=== PATIENT | female | born 1995 | race American Indian/Alaskan Native ===

== ENCOUNTER 2017-09-25 08:29 | Emergency (ER) | payer OTHER ==
[2017-09-25 10:02] LABS: Basophils # (Auto) 0.1 K/mm3 (0.0-0.1); Basophils % (Auto) 0.7 % (0.0-1.8); Eosinophils # (Auto) 0.1 K/mm3 (0.0-0.4); Eosinophils % (Auto) 1.2 % (0.0-4.3); Hematocrit 37.1 % (30.3-42.9); Lymphocytes # (Auto) 1.8 K/mm3 (1.2-5.4); Lymphocytes % (Auto) 25.4 % (13.4-35.0); Mean Corpuscular HGB Conc 32 % (30-34); Mean Corpuscular Hemoglobin 27 pg (28-32); Mean Corpuscular Volume 83 fl (79-97); Monocytes # (Auto) 0.7 K/mm3 (0.0-0.8); Platelet Count 382 K/mm3 (140-440); Red Blood Count 4.45 M/mm3 (3.65-5.03); Red Cell Distribution Width 14.7 % (13.2-15.2)
[2017-09-25 11:24] LABS: Bacteria,Urine 1+ /HPF (Negative); Bilirubin,Urine NEG (Negative); Blood,Urine LG (Negative); Urobilinogen,Urine < 2.0 mg/dL (<2.0)
[2017-09-25 11:25] LABS: RBC,Urine > 182.0 /HPF (0.0-6.0)
[2017-09-25 11:26] LABS: Color,Urine Red (Yellow)
[2017-09-25 11:48] VITALS: BP 146/85
--- NOTE | 2017-09-25 11:58 | Ultrasound Report ---
ULTRASOUND OB LESS THAN 14 WEEKS FETUS ULTRASOUND OB TRANSVAGINAL HISTORY: Vaginal bleeding, positive test. COMPARISON: None. TECHNIQUE: Transabdominal and transvaginal ultrasound with color doppler interrogation. FINDINGS: Uterus: 8 x 4 x 6 cm. No uterine mass. Normal cervix. Endometrium: Homogeneous. 8.5 mm in thickness. No intrauterine is identified. Right ovary: 2.9 x 1.6 x 3.6 cm. No focal abnormality. Left ovary: 3.3 x 2.0 x 1.4 cm. No focal abnormality. No pelvic fluid or mass is identified. Normal color doppler interrogation. IMPRESSION: Unremarkable transabdominal and transvaginal pelvic ultrasounds. No intrauterine is visualized. The endometrial stripe is normal measuring 8.5 mm. This could represent a spontaneous . Please note that a very early or an ectopic are not entirely excluded at this point. Please correlate with the patient's clinical presentation and history.
--- NOTE | 2017-09-25 12:33 | Emergency Department Report ---
HPI - General Chief Complaint: Abdominal Pain Time Seen by Provider: 09/25/17 11:04 - HPI HPI: 21-year-old female presents to the emergency department with a complaint of some lower abdominal and/or pelvic cramping along with some vaginal bleeding that has been going on since last night. The patient believes she is about 5 weeks as her last menstrual cycle was August 20 and she had a positive home test recently. With this she is . She has started taking vitamins. Otherwise she did not take anything for her symptoms at presentation. She does not have a STOCKROOM CLERK at this time. ED Past Medical Hx - Past Medical History Previous Medical History?: No - Surgical History Past Surgical History?: No - Social History Smoking Status: Never Smoker - Medications Home Medications: Home Medications Medication Instructions Recorded Confirmed Last Taken Type Nitrofurantoin Monohyd/M-Cryst 100 mg PO BID #14 capsule 09/25/17 Unknown Rx [Macrobid 100 mg Capsule] ED Review of Systems ROS: Stated complaint: CRAMPS/VAG BLEED/5WKS PREG Other details as noted in HPI Comment: All other systems reviewed and negative Constitutional: denies: chills, fever Eyes: denies: eye pain, eye discharge, vision change ENT: denies: ear pain, throat pain Respiratory: denies: cough, shortness of breath, wheezing Cardiovascular: denies: chest pain, palpitations Gastrointestinal: abdominal pain (cramping). denies: nausea, vomiting Genitourinary: other (vaginal bleeding). denies: urgency, dysuria, discharge Musculoskeletal: denies: back pain, joint swelling, arthralgia Skin: denies: rash, lesions Neurological: denies: headache, weakness, paresthesias Physical Exam - Physical Exam Vital Signs: Vital Signs 09/25/17 09/25/17 09/25/17 09:19 11:47 11:48 Temperature 98.8 F 98.2 F Pulse Rate 76 88 Respiratory 16 100 H 18 Rate Blood Pressure 143/84 Blood Pressure 146/85 [Left] O2 Sat by Pulse 100 100 Oximetry Physical Exam: GENERAL: The patient is well-developed well-nourished. HENT: Normocephalic. Atraumatic. Patient has moist mucous membranes. EYES: Extraocular motions are intact. Pupils equal reactive to light bilaterally. NECK: Supple. Trachea is midline. CHEST/LUNGS: Clear to auscultation. There is no respiratory distress noted. HEART/CARDIOVASCULAR: Regular. There is no tachycardia. There is no murmur. ABDOMEN: Abdomen is soft, nontender. Patient has normal bowel sounds. There is no abdominal distention. SKIN: Skin is warm and dry. NEURO: The patient is awake, alert, and oriented. The patient is cooperative. The patient has no focal neurologic deficits. The patient has normal speech. MUSCULOSKELETAL: There is no tenderness or deformity. There is no limitation range of motion. There is no evidence of acute injury. ED Course Vital Signs 09/25/17 09/25/17 09/25/17 09:19 11:47 11:48 Temperature 98.8 F 98.2 F Pulse Rate 76 88 Respiratory 16 100 H 18 Rate Blood Pressure 143/84 Blood Pressure 146/85 [Left] O2 Sat by Pulse 100 100 Oximetry ED Medical Decision Making - Lab Data Result diagrams: 09/25/17 09:30 - Radiology Data Radiology results: report reviewed ULTRASOUND OB LESS THAN 14 WEEKS FETUS ULTRASOUND OB TRANSVAGINAL HISTORY: Vaginal bleeding, positive test. COMPARISON: None. TECHNIQUE: Transabdominal and transvaginal ultrasound with color doppler interrogation. FINDINGS: Uterus: 8 x 4 x 6 cm. No uterine mass. Normal cervix. Endometrium: Homogeneous. 8.5 mm in thickness. No intrauterine is identified. Right ovary: 2.9 x 1.6 x 3.6 cm. No focal abnormality. Left ovary: 3.3 x 2.0 x 1.4 cm. No focal abnormality. No pelvic fluid or mass is identified. Normal color doppler interrogation. IMPRESSION: Unremarkable transabdominal and transvaginal pelvic ultrasounds. No intrauterine is visualized. The endometrial stripe is normal measuring 8.5 mm. This could represent a spontaneous . Please note that a very early or an ectopic are not entirely excluded at this point. Please correlate with the patient's clinical presentation and history. Transcribed By: TTR Dictated By: LUIS DIAZ JR, MD Electronically Authenticated By: LUIS DIAZ JR, MD Signed Date/Time: 09/25/17 1150 - Medical Decision Making Patient presents with vaginal bleeding and pelvic cramping while thinking she is . Based on last menstrual cycle she should be about 4-5 weeks . Ultrasound showed some thickened endometrium but otherwise no gestational sac or signs of intrauterine at this time. I went back and checked a beta hCG came back at 31. Altogether this appears most consistent with a spontaneous miscarriage. They were given the instructions to follow-up with an STOCKROOM CLERK or return to the emergency department in 2-3 days for a repeat hormone level to show definitively that it is declining. Macrobid prescribed for a mild urinary tract infection. She will return to the ER with any worsening of her symptoms or any acute distress. - Differential Diagnosis , threatened miscarriage, spontaneous miscarriage, fibroids Critical Care Time: No Critical care attestation.: If time is entered above; I have spent that time in minutes in the direct care of this critically ill patient, excluding procedure time. ED Disposition Clinical Impression: Threatened UTI (urinary tract infection) Qualifiers: Urinary tract infection type: acute cystitis Hematuria presence: with hematuria Qualified Code(s): N30.01 - Acute cystitis with hematuria Disposition: TO HOME OR SELFCARE Is pt being admited?: No Condition: Stable Instructions: Threatened Miscarriage (ED) Additional Instructions: Please follow up with an STOCKROOM CLERK in next few days. If you're unable to get into an STOCKROOM CLERK, return to the emergency department in 2-3 days for a repeat beta hCG/ hormone level. Your hormone level today was 31. This is most likely consistent with a miscarriage. However if the hormone level is increasing the next time it is checked, and this still may be a very early . If the hormone level is decreasing the next time it is checked, then this was a spontaneous miscarriage. Return to the emergency department sooner with any increased vaginal bleeding, worsening of your symptoms, or with any acute distress. Prescriptions: Nitrofurantoin Monohyd/M-Cryst [Macrobid 100 mg Capsule] 100 mg PO BID #14 capsule Referrals: [facility] [Provider Group] - 3-5 Days [facility] [Provider Group] - 3-5 Days [facility] [Provider Group] - 3-5 Days Time of Disposition: 12:32
== END 2017-09-25 12:49 | disposition home or self-care (01) ==
LOC: ED 08:29
DX: O20.0 Threatened abortion (principal); O23.11 Infections of bladder in pregnancy, first trimester; Z3A.01 Less than 8 weeks gestation of pregnancy
CPT/HCPCS: 36415; 76801; 76817; 81001; 84702; 84703; 85025; 86850; 86900; 86901; 99284

== ENCOUNTER 2018-07-23 17:05 | Emergency (ER) | payer OTHER ==
[2018-07-23 18:28] LABS: Hematocrit 35.3 % (30.3-42.9); Hemoglobin 11.7 gm/dl (10.1-14.3); Mean Corpuscular HGB Conc 33 % (30-34); Mean Corpuscular Volume 83 fl (79-97); Platelet Count 359 K/mm3 (140-440); Red Blood Count 4.27 M/mm3 (3.65-5.03); Red Cell Distribution Width 15.3 % (13.2-15.2)
[2018-07-23 18:42] LABS: Bilirubin,Urine NEG (Negative); Blood,Urine NEG (Negative); Color,Urine Amber (Yellow); Mucus,Urine 3+ /HPF; Urobilinogen,Urine < 2.0 mg/dL (<2.0)
[2018-07-23 18:49] LABS: BUN/Creatinine Ratio 15; Blood Urea Nitrogen 6 mg/dL (7-17); Calcium 9.5 mg/dL (8.4-10.2); Hemolysis Index 39
[2018-07-23 23:05] VITALS: BP 139/69
--- NOTE | 2018-07-23 23:57 | Ultrasound Report ---
FINAL REPORT PROCEDURE: US OB <= 14 WEEKS FETUS TECHNIQUE: Real-time transabdominal sonography of the uterus, placenta, amniotic fluid, adnexa, and fetus was performed with image documentation. Measurements were obtained to determine age/size. M-mode Doppler was used to document heartbeat. CPT 65868 HISTORY: Spotting Back Pain COMPARISON: No prior studies are available for comparison. FINDINGS: CRL: 37.7mm, which corresponds to a gestational age of: 10weeks, 5 days. Yolk Sac: Normal Embryonic Cardiac Activity: 177 beats per minute Gestational Sac: Normal. Right Ovary: 2.7 x 2.6 x 3.2 centimeters in size. It demonstrates a cystic lesion measuring 1.9 x 1.1 x 1.5 centimeters. Left Ovary: Measures 1.7 x 1.5 x 1.3 centimeters with normal echotexture. Estimated delivery date: 02/13/2019 IMPRESSION: 1. Single living intrauterine gestation at approximately 10 weeks and 5 days 2. EDC by US 02/13/2019.
--- NOTE | 2018-07-23 23:57 | Ultrasound Report ---
FINAL REPORT PROCEDURE: US OB TRANSVAGINAL TECHNIQUE: Real-time transvaginal sonography of the uterus, placenta, amniotic fluid, adnexa, and fe tus was performed with image documentation. Measurements were obtained to determine age/size. M -mode Doppler was used to document heartbeat. CPT 66638 HISTORY: Spotting Back Pain COMPARISON: No prior studies are available for comparison. FINDINGS: CRL: 37.7mm, which corresponds to a gestational age of: 10weeks, 5 days. Yolk Sac: Normal Embryonic Cardiac Activity: 177 beats per minute Gestational Sac: Normal. Right Ovary: 2.7 x 2.6 x 3.2 centimeters in size. It demonstrates a cystic lesion measuring 1.9 x 1.1 x 1.5 centimeters. Left Ovary: Measures 1.7 x 1.5 x 1.3 centimeters with normal echotexture. Estimated delivery date: 02/13/2019 IMPRESSION: 1. Single living intrauterine gestation at approximately 10 weeks and 5 days 2. EDC by US 02/13/2019.
--- NOTE | 2018-07-24 01:12 | Emergency Department Report ---
ED Female HPI - General Chief complaint: Vaginal Bleeding Stated complaint: 12 WKS/SPOTTING/BACK PAIN Source: patient Mode of arrival: Ambulatory Limitations: No Limitations - History of Present Illness Initial comments: 22-year-old female comes in complaining of vaginal spotting after having intercourse. Patient reports this is been for 3 days. Patient reports that she only sees blood when she wipes. She also reports she was having lower back pain but that has subsided. Patient's last menstrual period was 05/14/2018. Patient is followed by [facility] in [place]. She reports a little bit of pelvic cramping after having the transvaginal ultrasound here today. Patient is currently taking vitamins. She is 2 para 0 with a miscarriage. Patient reports she has no other past medical history has no known drug allergies and currently only taking vitamins. -: days(s) (3) Location: other (lower back pain) Severity: moderate Severity scale (0 -10): 5 Quality: dull Consistency: intermittent Improves with: none Worsens with: other (and on her back.) Are you Now?: Yes Last Menstrual Period: 05/14/18 EDC: 02/18/19 Associated Symptoms: other (vaginal spotting) - Related Data Sexually active: Yes : 2 Para: 0 A: 1 (miscarriage) Previous Rx's Medication Instructions Recorded Last Taken Type Nitrofurantoin Monohyd/M-Cryst 100 mg PO BID #14 capsule 09/25/17 Unknown Rx [Macrobid 100 mg Capsule] metroNIDAZOLE [Flagyl] 500 mg PO Q8HR #21 tablet 07/24/18 Unknown Rx Allergies Allergy/AdvReac Type Severity Reaction Status Date / Time No Known Allergies Allergy Unverified 09/25/17 09:24 ED Review of Systems ROS: Stated complaint: 12 WKS/SPOTTING/BACK PAIN Other details as noted in HPI Comment: All other systems reviewed and negative Genitourinary: other (vaginal spotting after intercourse) Musculoskeletal: back pain (lower back pain resolved) ED Past Medical Hx - Past Medical History Previous Medical History?: No - Surgical History Past Surgical History?: No - Social History Smoking Status: Never Smoker Substance Use Type: None - Medications Home Medications: Home Medications Medication Instructions Recorded Confirmed Last Taken Type Nitrofurantoin Monohyd/M-Cryst 100 mg PO BID #14 capsule 09/25/17 Unknown Rx [Macrobid 100 mg Capsule] metroNIDAZOLE [Flagyl] 500 mg PO Q8HR #21 tablet 07/24/18 Unknown Rx ED Physical Exam - General Limitations: No Limitations General appearance: alert, in no apparent distress - Head Head exam: Present: atraumatic, normocephalic - Eye Eye exam: Present: EOMI - ENT ENT exam: Present: mucous membranes moist - Neck Neck exam: Present: normal inspection - Respiratory Respiratory exam: Present: normal lung sounds bilaterally. Absent: respiratory distress - Cardiovascular Cardiovascular Exam: Present: regular rate, normal rhythm. Absent: systolic murmur, diastolic murmur, rubs, gallop - GI/Abdominal GI/Abdominal exam: Present: soft, normal bowel sounds. Absent: tenderness - External exam: Present: normal external exam Speculum exam: Present: vaginal discharge Bi-manual exam: Present: normal bi-manual exam - Extremities Exam Extremities exam: Present: normal inspection, full ROM - Back Exam Back exam: Present: normal inspection, full ROM. Absent: tenderness - Neurological Exam Neurological exam: Present: alert, oriented X3 - Psychiatric Psychiatric exam: Present: normal affect, normal mood - Skin Skin exam: Present: warm, dry, intact, normal color. Absent: rash ED Course Vital Signs 07/23/18 07/23/18 17:22 23:03 Temperature 98.8 F 98.6 F Pulse Rate 87 77 Respiratory 18 18 Rate Blood Pressure 158/87 139/69 O2 Sat by Pulse 100 100 Oximetry ED Medical Decision Making - Lab Data Result diagrams: 07/23/18 17:49 07/23/18 17:49 - Radiology Data Radiology results: report reviewed FINAL REPORT PROCEDURE: US OB TRANSVAGINAL TECHNIQUE: Real-time transvaginal sonography of the uterus, placenta, amniotic fluid, adnexa, and fetus was performed with image documentation. Measurements were obtained to determine age/size. M-mode Doppler was used to document heartbeat. CPT 39442 HISTORY: Spotting Back Pain COMPARISON: No prior studies are available for comparison. FINDINGS: CRL: 37.7mm, which corresponds to a gestational age of: 10weeks, 5 days. Yolk Sac: Normal Embryonic Cardiac Activity: 177 beats per minute Gestational Sac: Normal. Right Ovary: 2.7 x 2.6 x 3.2 centimeters in size. It demonstrates a cystic lesion measuring 1.9 x 1.1 x 1.5 centimeters. Left Ovary: Measures 1.7 x 1.5 x 1.3 centimeters with normal echotexture. Estimated delivery date: 02/13/2019 IMPRESSION: 1. Single living intrauterine gestation at approximately 10 weeks and 5 days 2. EDC by US 02/13/2019. [place]cribed By[place] [facility] [place]ictated By: MJ DUNCAN Electronically Authenticated By: MJ DUNCAN Signed Date/Time: 07/23/182356 DD/ 58 TD/TT: 07/23/182358 - Medical Decision Making Patient has been evaluated by this provider in fast track. Ultrasound completed shows the patient is 10 weeks and 5 days with EDC by ultrasound 02/13/2019. Discussed the patient I will send off a wet prep and she has some vaginal discharge when I did her pelvic exam. Constipation she needs to follow up with her obstetricia which is [facility] [place]. Patient verbalizes understanding Critical care attestation.: If time is entered above; I have spent that time in minutes in the direct care of this critically ill patient, excluding procedure time. ED Disposition Clinical Impression: Vaginal spotting, BV (bacterial vaginosis) Disposition: DC-01 TO HOME OR SELFCARE Is pt being admited?: No Does the pt Need Aspirin: No Condition: Stable Instructions: Bacterial Vaginosis (ED) Additional Instructions: Complete antibiotics as prescribed. Follow-up with passport support manager. Prescriptions: metroNIDAZOLE [Flagyl] 500 mg PO Q8HR #21 tablet Referrals: PRIMARY CARE, [Primary Care Provider] - 3-5 Days Forms: STI Treatment and Prevention
== END 2018-07-24 02:27 | disposition home or self-care (01) ==
LOC: ED 17:05
DX: O46.91 Antepartum hemorrhage, unspecified, first trimester (principal); O23.591 Infection of other part of genital tract in pregnancy, first trimester; Z3A.12 12 weeks gestation of pregnancy
CPT/HCPCS: 36415; 76801; 76817; 80048; 81001; 84702; 85027; 86900; 86901; 87210; 99284

== ENCOUNTER 2019-02-18 04:49 | Inpatient (IN) | payer MEDICAID, OTHER ==
[2019-02-18] MEDS ORDERED: BRETHINE SUB-Q PRN (06:04)
[2019-02-18] MEDS ORDERED: XYLOCAINE 2% INFILTRATI ONE (06:04)
[2019-02-18] MEDS ORDERED: SUBLIMAZE IV PRN (06:04)
[2019-02-18] MEDS ORDERED: AMPICILLIN/NS 2 GM/100 ML 2 GM/100 ML BAG IV ONE (06:32)
--- NOTE | 2019-02-18 06:40 | History and Physical Report ---
History of Present Illness Date of examination: 02/18/19 Date of admission: 02/18/19 06:23 Chief complaint: Labor History of present illness: 23 year old presents to L&D in labor. LMP 04/13/18. EDC 02/16/19. Patient received care at [facility], and records are available. significant for the following: obesity, anemia (supplemented with iron), GBS positive. labs are as follows: O+, antibody screen negative, rubella immune, hepatitis B surface antigen negative, RPR nonreactive, HIV negative, chlamydia negative, gonorrhea negative, trichomonas negative, GBS positive, hemoglobin electrophoresis AA, quad screen negative, 1 hour sugar test 102. Past History Past Medical History: other (obesity) Past Surgical History: no surgical history ADMITTING CLERK History: other (history of a spontaneous in the past). denies: abnormal PAP smear, chlamydia, gonorrhea, hepatitis B, hepatitis C, herpes, HIV, syphilis, trichomonas Family/Genetic History: other (family history of common migraine) Social history: single, full code. denies: smoking, alcohol abuse, prescription drug abuse, IV drug use - Obstetrical History Expected Date of Delivery: 02/16/19 Actual Gestation: 40 Week(s) 2 Day(s) : 2 Para: 0 Hx # Term Pregnancies: 0 Number of Pregnancies: 0 Spontaneous Abortions: 1 Induced : 0 Number of Living Children: 0 Medications and Allergies Allergies Allergy/AdvReac Type Severity Reaction Status Date / Time No Known Allergies Allergy Unverified 09/25/17 09:24 Home Medications Medication Instructions Recorded Confirmed Last Taken Type Nitrofurantoin Monohyd/M-Cryst 100 mg PO BID #14 capsule 09/25/17 Unknown Rx [Macrobid 100 mg Capsule] metroNIDAZOLE [Flagyl] 500 mg PO Q8HR #21 tablet 07/24/18 Unknown Rx Active Meds: Active Medications Ephedrine Sulfate (Ephedrine Sulfate) 10 mg IV Q2M PRN PRN Reason: Hypotension Fentanyl (Sublimaze) 100 mcg IV Q2H PRN PRN Reason: Labor Pain Oxytocin/Sodium Chloride (Pitocin/Ns 20 Unit/1000ml Drip) 20 units in 1,000 mls @ 125 mls/hr IV DIRECT [place]INA Lactated Ringer's (Lactated Ringers) 1,000 mls @ 125 mls/hr IV DIRECT CORINA Ampicillin Sodium (Ampicillin/Ns 2 Gm/100 Ml) 2 gm in 100 mls @ 100 mls/hr IV ONCE ONE; Protocol Stop: 02/18/19 07:31 Ampicillin Sodium (Ampicillin/Ns 1 Gm/50 Ml) 1 gm in 50 mls @ 100 mls/hr IV Q4HR CORINA; Protocol Terbutaline Sulfate (Brethine) 0.25 mg SUB-Q ONCE PRN PRN Reason: Hyperstimulation/Hypertonicity Review of Systems All systems: negative (contractions) - Vital Signs Vital signs: Vital Signs Pulse BP 84 132/78 02/18/19 05:08 02/18/19 05:08 Temp Pulse Resp BP Pulse Ox 98.1 F 77 20 128/75 02/18/19 05:10 02/18/19 06:34 02/18/19 05:10 02/18/19 06:34 - Physical Exam Abdomen: Positive: normal appearance, soft. Negative: distention, tenderness, guarding, rigidity Genitourinary (Female): Positive: normal external genitalia, normal perenium. Negative: perineal/vulvar lesions Vagina: Positive: normal moisture Uterus: Positive: enlarged (S=D) Anus/Rectum: Positive: normal perianal skin Extremities: Positive: normal. Negative: tenderness, edema - Obstetrical FHR: category 1 Uterine Contraction Monitor Mode: External Cervical Dilatation: 4 (Exam per RN in triage) Cervical Effacement Percentage: 70 station: -2 Uterine Contraction Pattern: Irregular Uterine Contraction Intensity: Moderate Results All other labs normal. Assessment and Plan A: at 40 weeks, 2 days gestation. Labor. GBS positive. P: Admit. Continuous EFM. GBS prophylaxis.
[2019-02-18 06:46] LABS: Hematocrit 33.4 % (30.3-42.9); Hemoglobin 11.4 gm/dl (10.1-14.3); Mean Corpuscular HGB Conc 34 % (30-34); Mean Corpuscular Volume 85 fl (79-97); Platelet Count 345 K/mm3 (140-440); Red Blood Count 3.93 M/mm3 (3.65-5.03); Red Cell Distribution Width 14.6 % (13.2-15.2)
[2019-02-18] MEDS ORDERED: PITOCin/NS 20 UNIT/1000ML DRIP 20 UNITS/1,000 ML BAG IV SCH ×3 (07:00→23:00)
[2019-02-18] MEDS: LACTATED RINGERS 1,000 ML IV SCH ×2 (07:01→23:44)
--- NOTE | 2019-02-18 08:29 | Event Note ---
Date: 02/18/19 HSV culture taken of right labia majora. HSV serology ordered. Informed Dr. Nathan and Hodan Parikh CNM of lesion on right labia and its uncertain etiology. Discussed with patient that since we don't know if this lesion is traumatic or what it is, that she needs to discuss with oncoming providers re: possible section due to presence of a lesion in genital area.
--- NOTE | 2019-02-18 09:21 | Progress Note ---
Assessment and Plan - Patient Problems (1) 40 weeks gestation of Current Visit: Yes Status: Acute (2) Active labor at term Current Visit: Yes Status: Acute Plan to address problem: Continue current management Patient requesting natural labor Start oxytocin for labor augmentation if minimal or no cervical change in 3 hrs Anticipate vaginal delivery (3) Group B Streptococcus carrier, +RV culture, currently Current Visit: Yes Status: Acute Plan to address problem: Continue ampicillin until delivery (4) Candidal vulvovaginitis Current Visit: Yes Status: Acute Plan to address problem: Fluconazole 150mg PO x1 ordered Subjective - Subjective Date of service: 02/18/19 Principal diagnosis: IUP @ 40w2d; Active Labor Interval history: see H&P and Event Note Patient reports: movement normal, contractions, other (bloody show), no new complaints, no loss of fluid Objective - Vital Signs Vital Signs: Vital Signs - 12hr 02/18/19 02/18/19 02/18/19 05:08 05:10 06:34 Temperature 98.1 F Pulse Rate 84 77 Respiratory 20 Rate Blood Pressure 132/78 128/75 02/18/19 02/18/19 02/18/19 07:31 08:01 08:31 Temperature 97.5 F L Pulse Rate 71 81 Respiratory 18 Rate Blood Pressure 117/75 119/64 02/18/19 09:03 Temperature Pulse Rate 71 Respiratory Rate Blood Pressure 117/58 - Exam Vulva: both: lichenification (right fissure near introitus @ 7:00 & white- appearing vulvar present consistent with candidiasis ) FHR: category 2 FHR comments: baseline 130, moderate variability, 15x15 accels, variable decels Uterine Contraction Monitor Mode: External Cervical Dilatation: 4.5 Cervical Effacement Percentage: 70 station: -2 Uterine Contraction Pattern: Irregular - Labs Labs: Laboratory Results - last 24 hr 02/18/19 02/18/19 06:27 06:27 WBC 10.6 RBC 3.93 Hgb 11.4 Hct 33.4 MCV 85 MCH 29 MCHC 34 RDW 14.6 Plt Count 345 Blood Type O POSITIVE Antibody Screen Negative
[2019-02-18] MEDS ORDERED: DIFLUCAN PO ONE (10:00)
[2019-02-18] MEDS ORDERED: AMPICILLIN/NS 1 GM/50 ML 1 GM/50 ML BAG IV SCH (10:35)
[2019-02-18] MEDS ORDERED: PITOCin/NS 30 UNIT/500ML 30 UNITS/500 ML BAG IV SCH (12:00)
[2019-02-18] MEDS ORDERED: STADOL IV PRN (13:23)
--- NOTE | 2019-02-18 16:25 | Event Note ---
Date: 02/18/19 S: Pt in left lateral position with family members at bedside. Pain level 10/10. Requesting epidural anesthesia. O: baseline 150, moderate variability, + accels, variable/late decels SVE 6.5/80/-1/BBOW A: IUP @ 40w2d Category II FHR P: Lateral positioning, IVF bolus, Oxygen via nonrebreather mask Pitocin discontinued AROM @ 16:06, clear fluid, moderate amount IUPC, FSE placed Consult Dr. Nathan if Category II tracing persists despite intrauterine resuscitation measures
[2019-02-18] MEDS ORDERED: REGLAN IV ONE (17:15)
[2019-02-18] MEDS ORDERED: PEPCID IV ONE (17:15)
[2019-02-18] MEDS ORDERED: BICITRA PO ONE (17:15)
--- NOTE | 2019-02-18 17:20 | Anesthesia Consultation ---
Anesthesia Consult and Med Hx Date of service: 02/18/19 - Airway Anesthetic Teeth Evaluation: Good ROM Head & Neck: Adequate Mental/Hyoid Distance: Adequate Mallampati Class: Class II Intubation Access Assessment: Probably Good - Pulmonary Exam CTA: Yes - Cardiac Exam Cardiac Exam: RRR - Pre-Operative Health Status ASA Pre-Surgery Classification: ASA2 Proposed Anesthetic Plan: Spinal - Pulmonary Hx Asthma: No - Cardiovascular System Hx Hypertension: No - Central Nervous System Hx Seizures: No Hx Psychiatric Problems: No - Endocrine Hx Renal Disease: No Hx Hypothyroidism: No Hx Hyperthyroidism: No - Hematic Hx Anemia: No Hx Sickle Cell Disease: No - Other Systems Hx Alcohol Use: No
--- NOTE | 2019-02-18 17:20 | Anesthesia Day of Surgery ---
Anesthesia Day of Surgery - Day of Surgery Patient Examined: Yes Patient H&P Reviewed: Yes Patient is NPO: Yes
--- NOTE | 2019-02-18 17:30 | Event Note ---
Date: 02/18/19 Mom is stable. Fetus showing decelerations with increasing frequency. Variability is good. Clinical estimate of wt approx 7lbs. Vag exam: Cx 6cm, 100% effaced, 0-2 station,OA, narrow pubic arch. IMP: intolerance of labor. Risks of waiting for a chance at vag delivery explained. All patients questions were answered and she consented to rec ommendation to have a c/section.
[2019-02-18] MEDS ORDERED: ceFAZolin 2 GM in NACL 0.9% 100 ML IV ONE (18:00)
[2019-02-18] MEDS ORDERED: WATER FOR IRRIG STERILE IR ONE (18:19)
[2019-02-18] MEDS ORDERED: NACL 0.9% IR ONE (18:19)
[2019-02-18] MEDS ORDERED: ANCEF IV ONE (18:19)
[2019-02-18] MEDS ORDERED: ZOFRAN ONE (19:10)
[2019-02-18] MEDS ORDERED: TUCKS PAD TP PRN (19:15)
[2019-02-18] MEDS ORDERED: NORCO 5/325 PO PRN (19:15)
[2019-02-18] MEDS ORDERED: TORADOL IV PRN (19:15)
[2019-02-18] MEDS ORDERED: LANSINOH TP PRN (19:15)
[2019-02-18] MEDS ORDERED: IBUPROFEN PO PRN (19:15)
[2019-02-18] MEDS ORDERED: MORPHINE IV PRN ×3 (19:15→22:40)
[2019-02-18] MEDS ORDERED: NARCAN 0.4 MG/1 ML IV PRN (19:15)
--- NOTE | 2019-02-18 19:31 | Operative Report ---
Operative Report Operative Report: Date of surgery: February 18 2019 Preoperative diagnosis: Term with intolerance of labor. Postoperative diagnosis: The same. Surgeon:MD Venita Intervention Nurse: Ankit Ragsdale CRNA Anesthesia: Spinal block. Estimated blood loss: 1200 mL Complications: None Findings: There was a live baby boy weighing 2431 g with Apgars 8/9 and in occiput posterior position within the false maternal pelvis. The ovaries, fallopian tube and the uterus were all grossly normal Procedure details: The patient was taken to the operating room and given a spinal block. She was placed in the straight supine position with a slight left lateral tilt. An indwelling Randhawa catheter was inserted. The patient was prepped in the abdomen and the drapes were placed. Timeout was done. With the go-ahead from the mill recorder a Pfannenstiel incision was made. This was carried across the subcutaneous layers to the fascia which was also divided transversely. The underlying straps of recti abdominis muscle flaps were dissected free of the fascia using a combination of blunt and sharp dissections. The muscles were in midline to gain access to the anterior parietoperitoneum which was divided after carefully excluding any underlying viscera. The access to the peritoneal cavity was widened by manual stretching. The bladder blade was applied. The utero vesicle peritoneal flap was divided allowing the bladder to be displaced caudally. A low segment transverse uterine incision was made scalpel down to the decidual layer. The cavity of the uterus was done bluntly with the bandage scissors. This was then used to extend the uterine incision laterally on both sides. There was an effusion of a live green meconium staining in the amniotic sac. The head of the was lifted out of the false pelvis undelivered through the incision using fundal pressure. The airways where bulb suctioned beginning with the mouth. Continuing fundal pressure combined with traction on the mandibular processes delivered and the rest of the baby. The umbilical cord was double clamped and divided. The baby was transferred to the pediatric team. The placenta was manually removed from the uterine cavity. The uterine cavity was further explored and was empty of any placental remnants. The uterine inci anthony was sewn in 3 layers with #1 Vicryl. Hemostasis was satisfactory. Blood and clots were cleared from the peritoneal cavity. The anterior parietal peritoneal was closed with #1 Vicryl. The fascia was closed with #1 Vicryl. The subcutaneous layer was hemostatic allowing the skin to be closed subcuticularly with 4-0 Vicryl on a David needle. There were no complications. The patient tolerated the procedure well. The estimated blood loss was 1200 mL. All sponges and instruments were accounted for. The patient was transferred to the recovery room in very good condition.
[2019-02-18] MEDS ORDERED: ANCEF/NS 1 GM/50 ML 1 GM/50 ML BAG IV SCH (20:00)
[2019-02-18] MEDS ORDERED: SODIUM CHLORIDE FLUSH SYRINGE 10 ML IV NR (20:00)
[2019-02-18] MEDS ORDERED: D5LR 1,000 ML IV SCH (23:00)
[2019-02-18] MEDS: TORADOL IV PRN (23:02)
[2019-02-18] MEDS ORDERED: TORADOL ONE (23:02)
--- NOTE | 2019-02-18 23:07 | Post Anesthesia Evaluation ---
- Post Anesthesia Evaluation Patient Participated: Yes Airway Patent: Yes Stable Respiratory Function: Yes Nausea/Vomiting: No Temp > 96.8F: Yes Pain Manageable: Yes Adequeate Hydration: Yes Anesthesia Complications: No Block Receding Appropriately: Yes
[2019-02-18] MEDS: NORCO 5/325 PO PRN (23:42)
[2019-02-18] MEDS ORDERED: NORCO 5/325 ONE (23:43)
[2019-02-19] MEDS: ceFAZolin 2 GM in NACL 0.9% 100 ML IV SCH ×2 (03:24→11:00)
[2019-02-19] MEDS ORDERED: MORPHINE ONE (03:33)
[2019-02-19] MEDS ORDERED: D5LR 1,000 ML IV ONE (05:00)
[2019-02-19] MEDS: NORCO 5/325 PO PRN ×4 (05:58→21:19)
[2019-02-19] MEDS ORDERED: NORCO 5/325 ONE (05:58)
[2019-02-19] MEDS ORDERED: ceFAZolin 2 GM in NACL 0.9% 100 ML IV SCH (06:00)
[2019-02-19 07:44] LABS: Hematocrit 23.1 % (30.3-42.9); Hemoglobin 7.6 gm/dl (10.1-14.3)
[2019-02-19] MEDS ORDERED: FEOSOL PO SCH (10:00)
[2019-02-19] MEDS: TORADOL IV PRN (10:23)
--- NOTE | 2019-02-19 11:53 | Progress Note ---
Assessment and Plan 1) S/P primary low transverse Current Visit: Yes Status: Acute Plan to address problem: POD 1 - stable Continue routine postop orders Ambulation encouraged Abdominal binder ordered Anticipate discharge in 24-48 hours (2) Anemia due to blood loss, acute Current Visit: Yes Status: Acute Plan to address problem: Asymptomatic InFed 100mg IM x 1 dose Continue iron therapy Subjective - Subjective Date of service: 02/19/19 Principal diagnosis: POD#1 s/p Pc/s Patient reports: appetite normal, voiding normally, pain well controlled, flatus, ambulating normally, no bowel movement : doing well Objective - Vital Signs Latest vital signs: Vital Signs Temp Pulse Resp BP BP Pulse Ox 02/19/19 09:20 98.2 F 18 125/62 02/19/19 04:00 98.6 F 62 19 118/78 02/19/19 00:30 98.4 F 71 19 105/69 02/18/19 20:55 97.4 F L 88 20 118/70 98 02/18/19 19:15 98.1 F 94 H 15 63/30 98 02/18/19 17:08 74 136/77 02/18/19 16:33 66 134/88 02/18/19 16:03 87 125/81 02/18/19 15:39 69 128/65 02/18/19 15:02 65 148/88 02/18/19 14:31 62 136/80 02/18/19 14:01 73 114/78 02/18/19 13:32 75 114/67 02/18/19 13:03 73 151/76 02/18/19 12:36 98.0 F 20 02/18/19 12:31 73 117/67 Intake and Output 02/18/19 02/19/19 02/19/19 23:59 07:59 15:59 Intake Total 1000 300 Output Total 1600 800 Balance -600 -500 Intake: IV 1000 Lactated Ringers 1,000 ml 1000 @ 125 mls/hr IV DIRECT CORINA Rx#:[id number] Oral 300 Output: Urine 1600 800 Indwelling 1100 Indwelling Catheter 800 Other: Total, Intake Amount 100 Total, Output Amount 800 Estimated Blood Loss 1,200 - Exam Breasts: Present: normal Cardiovascular: Present: Regular rate, Normal S1, Normal S2, No murmurs Lungs: Present: Clear to auscultation, Normal air movement Abdomen: Present: normal appearance, soft, tenderness (as expected post-op), normal bowel sounds. Absent: distention Vulva: both: normal Uterus: Present: firm, fundal height at umbilicus Extremities: Present: normal Deep Tendon Reflex Grade: Normal +2 Incision: Present: normal, dry, intact, dressed (Pressure dressing CDI) - Labs Labs: Abnormal lab results 02/19/19 Range/Units 07:25 Hgb 7.6 L D (10.1-14.3) gm/dl Hct 23.1 L D (30.3-42.9) %
[2019-02-19] MEDS ORDERED: INFED IM ONE (13:00)
[2019-02-19] MEDS: IBUPROFEN PO PRN (19:29)
[2019-02-20] MEDS: IBUPROFEN PO PRN ×3 (00:23→11:30)
[2019-02-20] MEDS: NORCO 5/325 PO PRN ×3 (04:05→20:20)
--- NOTE | 2019-02-20 10:42 | Progress Note ---
Assessment and Plan - Patient Problems (1) S/P section Current Visit: Yes Status: Acute Plan to address problem: Continue routine PP orders Keep incision clean and dry Anticipate D/C home tomorrow (2) Anemia Current Visit: Yes Status: Acute Qualifiers: Anemia type: other cause Other causes of anemia: acute posthemorrhagic Qualified Code(s): D62 - Acute posthemorrhagic anemia Plan to address problem: Asymptomatic Ferrous sulfate 325mg po BID Subjective - Subjective Date of service: 02/20/19 Principal diagnosis: POD#2 s/p Pc/s; Anemia Interval history: See admission H & P, OB operative summary and PP progress notes Patient reports: appetite normal, voiding normally, pain well controlled, flatus, ambulating normally, no dizzy ambulation : doing well, bottle feeding (and ) Objective - Vital Signs Latest vital signs: Vital Signs Temp Pulse Resp BP BP 02/20/19 07:50 98.3 F 85 18 105/59 02/20/19 05:53 20 02/20/19 04:05 20 02/20/19 00:23 20 02/20/19 00:00 98.4 F 62 18 115/68 02/19/19 21:19 20 02/19/19 17:18 99.0 F 18 122/66 02/19/19 12:29 97.5 F L 18 116/63 Intake and Output 02/19/19 02/20/19 02/20/19 23:59 07:59 15:59 Intake Total 520 Balance 520 Intake: Oral 520 Other: Total, Intake Amount 320 - Exam Breasts: Present: deferred Cardiovascular: Present: Regular rate Lungs: Present: Normal air movement Abdomen: Present: soft, normal bowel sounds Uterus: Present: firm, fundal height below umbilicus (U-1) Extremities: Present: normal Deep Tendon Reflex Grade: Normal +2 Incision: Present: dry, intact (no signs of infection noted)
--- NOTE | 2019-02-20 10:56 | Discharge Summary ---
Providers - Providers Date of Admission: 02/18/19 06:23 Date of discharge: 02/21/19 (1200) Attending physician: MARIA DE JESUS ORONA MD Primary care physician: MARIA DE JESUS ORONA MD Hospitalization Reason for admission: active labor Delivery: Procedure: section Episiotomy: none Laceration: none Incision: dry, intact Other procedures: none complications: none Discharge diagnosis: IUP at term delivered [place] baby: male Hospital course: See admission H & P, OB operative summary and PP progress notes Condition at discharge: Stable Disposition: DC-01 TO HOME OR SELFCARE - Discharge Diagnoses (1) S/P section Status: Acute (2) Anemia Status: Acute Qualifiers: Anemia type: other cause Other causes of anemia: acute posthemorrhagic Qualified Code(s): D62 - Acute posthemorrhagic anemia Plan - Discharge Medications Prescriptions: Ferrous Sulfate [Ferrous Sulfate 324 MG] 324 mg PO TID 30 Days #90 tablet. HYDROcodone/APAP 10-325 [[place] 10/325] 1 - 2 each PO Q6HR PRN 7 Days #30 tablet PRN Reason: Pain - Provider Discharge Summary Activity: routine, no sex for 6 weeks, no heavy lifting 4 weeks, no strenuous exercise Diet: other (increase iron rich foods) Instructions: routine Additional instructions: [] Smoking cessation referral if applicable(refer to patient education folder for contact #) [] Refer to [facility] Booklet Call your doctor immediately for: * Fever > 100.5 * Heavy vaginal bleeding ( >1 pad per hour) * Severe persistent headache * Shortness of breath * Reddened, hot, painful area to leg or breast * Drainage or odor from incision. * Keep incision clean and dry at all times and follow doctor's instructions regarding bathing/showering * Continue daily oral iron supplementation - Follow up plan Follow up: MARIA DE JESUS ORONA MD [Primary Care Provider] - 7 Days
[2019-02-20] MEDS: FEOSOL PO SCH ×2 (13:13→19:56)
[2019-02-21] MEDS: IBUPROFEN PO PRN ×2 (00:04→14:09)
[2019-02-21] MEDS: NORCO 5/325 PO PRN ×2 (01:56→08:35)
[2019-02-21] MEDS: FEOSOL PO SCH ×2 (08:35→14:09)
[2019-02-21 17:23] VITALS: BP 137/79
== END 2019-02-21 16:25 | disposition home or self-care (01) | DRG 765 ==
LOC: TRG 04:49 → LD 06:23 → OB 20:25
PROVIDERS: ADMIT Obstetrics & Gynecology; ATTEND Obstetrics & Gynecology
PROC: 10D00Z1 Extraction of Products of Conception, Low, Open Approach (ICD-10-PCS; principal; 2019-02-18)
PROC: 10907ZC Drainage of Amniotic Fluid, Therapeutic from Products of Conception, Via Natural or Artificial Opening (ICD-10-PCS; 2019-02-18)
PROC: 10H07YZ Insertion of Other Device into Products of Conception, Via Natural or Artificial Opening (ICD-10-PCS; 2019-02-18)
DX: O99.824 Streptococcus B carrier state complicating childbirth (principal); D62 Acute posthemorrhagic anemia; O75.3 Other infection during labor; B37.3 Candidiasis of vulva and vagina; O99.02 Anemia complicating childbirth; O99.214 Obesity complicating childbirth; E66.9 Obesity, unspecified; Z37.0 Single live birth; Z3A.40 40 weeks gestation of pregnancy
CPT/HCPCS: 36415; 85014; 85018; 85027; 86592; 86850; 86900; 86901; 87255; 87529; G0378; J0290; J0595; J0690; J1750; J1885; J2270; J2405; J2590; J2765; J7120; J7121

== ENCOUNTER 2019-03-18 20:27 | Emergency (ER) | payer MEDICAID ==
--- NOTE | 2019-03-18 22:26 | Emergency Department Report ---
Blank Doc - Documentation Documentation: 23-year-old female that presents with left sided drainage from site. This initial assessment/diagnostic orders/clinical plan/treatment(s) is/are subject to change based on patient's health status, clinical progression and re- assessment by fellow clinical providers in the ED. Further treatment and workup at subsequent clinical providers discretion. Patient/guardians urged not to elope from the ED as their condition may be serious if not clinically assessed and managed. Initial orders include: 1- Patient sent to MAIN for further evaluation and treatment
--- NOTE | 2019-03-19 01:57 | Emergency Department Report ---
- General Chief Complaint: Wound/Laceration Stated Complaint: POST C SECTION COMPLICATIONS Time Seen by Provider: 03/18/19 22:24 Source: patient Mode of arrival: Ambulatory Limitations: No Limitations - History of Present Illness Initial Comments: Mrs. Gracia is a healthy 23-year-old female who is 4 weeks status post on February 18. Recently she has had leaking from the left side of the incision wound. Clear. No fever. No trauma. -: Gradual, days(s) (2) Context: other (surgical incision status post section) Associated Symptoms: none - Related Data Previous Rx's Medication Instructions Recorded Last Taken Type Nitrofurantoin Monohyd/M-Cryst 100 mg PO BID #14 capsule 09/25/17 Unknown Rx [Macrobid 100 mg Capsule] metroNIDAZOLE [Flagyl] 500 mg PO Q8HR #21 tablet 07/24/18 Unknown Rx HYDROcodone/APAP 10-325 [[place] 1 - 2 each PO Q6HR PRN 7 Days #30 02/18/19 Unknown Rx 10/325] tablet Ferrous Sulfate [Ferrous Sulfate 324 mg PO TID 30 Days #90 tablet. 02/20/19 Unknown Rx 324 MG] Allergies Allergy/AdvReac Type Severity Reaction Status Date / Time No Known Allergies Allergy Verified 03/18/19 20:51 ED Review of Systems ROS: Stated complaint: POST C SECTION COMPLICATIONS Other details as noted in HPI Constitutional: denies: fever, malaise Skin: denies: rash, lesions ED Past Medical Hx - Past Medical History Previous Medical History?: No Hx Hypertension: No Hx Diabetes: No Hx Deep Vein Thrombosis: No Hx Renal Disease: No Hx Sickle Cell Disease: No Hx Seizures: No Hx Asthma: No Hx HIV: No - Surgical History Additional Surgical History: - Social History Smoking Status: Never Smoker Substance Use Type: None - Medications Home Medications: Home Medications Medication Instructions Recorded Confirmed Last Taken Type Nitrofurantoin Monohyd/M-Cryst 100 mg PO BID #14 capsule 09/25/17 02/19/19 Unknown Rx [Macrobid 100 mg Capsule] metroNIDAZOLE [Flagyl] 500 mg PO Q8HR #21 tablet 07/24/18 02/19/19 Unknown Rx HYDROcodone/APAP 10-325 [[place] 1 - 2 each PO Q6HR PRN 7 Days #30 02/18/19 Unknown Rx 10/325] tablet Ferrous Sulfate [Ferrous Sulfate 324 mg PO TID 30 Days #90 tablet. 02/20/19 Unknown Rx 324 MG] ED Physical Exam - General Limitations: No Limitations General appearance: alert, in no apparent distress - Head Head exam: Present: atraumatic, normocephalic - Neurological Exam Neurological exam: Present: alert, oriented X3 - Psychiatric Psychiatric exam: Present: normal affect, normal mood - Skin Skin exam: Present: other (well-healed surgical incision. Unable to express discharge. No indication of infection. ) ED Course Vital Signs 03/18/19 03/19/19 22:25 01:47 Temperature 98.3 F Pulse Rate 64 Respiratory 18 16 Rate Blood Pressure 129/81 O2 Sat by Pulse 98 Oximetry ED Medical Decision Making - Medical Decision Making Mrs. Gracia has a well-healed surgical incision. I do not suspect wound dehiscence. No indication of infection. Possible minimal wound dehiscence however intervention is not indicated this time. I recommended bandage covering. I tried to provide reassurance that will eventually completely healed. recommended follow-up with her personal situation. No evidence of infection. Discharged home. According to operative report Dr. Nathan performed section. I have provided referral Critical care attestation.: If time is entered above; I have spent that time in minutes in the direct care of this critically ill patient, excluding procedure time. ED Disposition Clinical Impression: Wound drainage, Status post section Disposition: -01 TO HOME OR SELFCARE Is pt being admited?: No Does the pt Need Aspirin: No Condition: Stable Additional Instructions: Your wound will continue to heal. It will heal completely. Dr. Nathan perforned your surgery. Referrals: RAVINDER NATHAN MD [Staff Physician] - 3-5 Days
[2019-03-19 02:13] VITALS: BP 121/78
== END 2019-03-19 02:13 | disposition home or self-care (01) ==
LOC: ED 20:27
DX: O90.89 Other complications of the puerperium, not elsewhere classified (principal); Z79.899 Other long term (current) drug therapy; Z98.890 Other specified postprocedural states
CPT/HCPCS: 99282

== ENCOUNTER 2019-12-14 14:00 | Emergency (ER) | payer MEDICAID, OTHER ==
[2019-12-14 14:15] VITALS: BP 132/83
--- NOTE | 2019-12-14 15:38 | Emergency Department Report ---
Chief Complaint: Abdominal Pain Stated Complaint: ABD PAIN - HPI History of Present Illness: 24-year-old -[place] female presents to the emergency room complaining of intermittent right lower quadrant pain x2 years. Patient states the last 2 days it has given her some discomfort. Patient denies any pain at this time. Patient denies any vaginal discharge no vaginal bleeding last menstrual period was 11/19/2019. - Exam Vital Signs: Vital Signs 12/14/19 14:12 Temperature 99 F Pulse Rate 88 Respiratory 16 Rate Blood Pressure 132/83 O2 Sat by Pulse 98 Oximetry Physical Exam: Gen: alert oriented NAD Cardic: regular rate and rhythm no murmurs appreciated Resp: Clear to auscultation bilateral no wheezing no rales or rhonchi. Abdomen: Soft nontender nondistended normal bowel sounds. MSE screening note: Focused history and physical exam performed. Due to findings the following was ordered: 24-year-old -[place] female presents to the emergency room complaining of intermittent right lower quadrant pain x2 years. Patient states the last 2 days it has given her some discomfort. Patient denies any pain at this time. Patient denies any vaginal discharge no vaginal bleeding last menstrual period was 11/19/2019. Discussed with patient that she is currently having no pain this is been chronic for the last 2 years that she should follow-up with her primary care provider or [facility]. Discussed with patient she can try taking ibuprofen at that time could be due to her ovulation. Patient verbalized understanding. ED Disposition for MSE Disposition: Z-07 MED SCREENING EXAM-LEFT Is pt being admited?: No Does the pt Need Aspirin: No Condition: Stable Instructions: Abdominal Pain (ED) Additional Instructions: Please try taking ibuprofen when you have this right lower quadrant pain is most likely due to ovulation. I recommended she follow-up with your [facility] or primary care provider. Referrals: PRIMARY CAREMD [Primary Care Provider] - 3-5 Days [facility] [Provider Group] - 3-5 Days
== END 2019-12-14 15:39 | disposition left against medical advice (07) ==
LOC: ED 14:00
DX: R10.31 Right lower quadrant pain (principal)
CPT/HCPCS: 99282